=== PATIENT | male | born 1970 | race Two or more races ===

== ENCOUNTER 2022-07-06 07:51 | Emergency (ER) | payer MEDICAID, OTHER ==
[~2022-07-06] VITALS: Ht 170.2 cm; Wt 80.0 kg
[2022-07-06 08:03] VITALS: BP 170/113
[2022-07-06] MEDS ORDERED: VANCOMYCIN 1GM/250ML 250 ML IV ONE (09:00)
[2022-07-06] MEDS ORDERED: PIPERACILLIN-TAZOB 3.375GM 100 ML IV SCH (09:00)
[2022-07-06] MEDS ORDERED: VANCOMYCIN PER PHARMACY 0 MG IV SCH (09:00)
[2022-07-06 09:40] LABS: Basophils # (auto) 0.1 10 ^3/uL (0-0.2); Eosinophils # (auto) 0.1 10 ^3/uL (0-0.8); Eosinophils % (auto) 1.5 % (0.0-7.0); Hematocrit 37.6 % (41.0-53.0); Hemoglobin 12.8 g/dL (13.5-17.5); Mean Corpuscular Hemoglobin 30.9 pg (28.0-32.0); Mean Corpuscular Hgb Conc. 34.2 g/dL (32.0-36.0); Mean Corpuscular Volume 90.4 fL (80.0-100.0); Monocytes # (auto) 0.4 10 ^3/uL (0-1.3); Monocytes % (auto) 6.2 % (0.0-12.0); Neutrophils # (auto) 4.8 10 ^3/uL (1.6-8.6); Neutrophils % (auto) 76.3 % (37.0-80.0); Nucleated Red Blood Cells % 0.1 %; Red Blood Cells 4.15 10^6/uL (4.5-5.90); Red Cell Distribution Width 14.8 % (11.8-14.3); White Blood Cell 6.4 10^3/uL (4.4-10.8)
[2022-07-06 10:28] LABS: Potassium 4.7 mmol/L (3.5-5.1)
[2022-07-06 10:32] LABS: BUN/Creatinine Ratio 21.5; CRP High Sensitivity 0.18 mg/dL (< 0.3); Calcium 9.4 mg/dL (8.5-10.1)
[2022-07-06 10:35] LABS: Bilirubin, Total 0.3 mg/dL (0.2-1.0); Total Protein 6.7 g/dL (6.4-8.2)
[2022-07-06] MEDS ORDERED: HYDROcodone-ACET 5/325MG TAB PO ONE (12:30)
[2022-07-06] MEDS ORDERED: CLIN300C8 PO (12:36)
[2022-07-06] MEDS ORDERED: CEPH-510 PO (12:36)
== END 2022-07-06 13:56 | disposition left against medical advice (07) ==
LOC: ER 07:51
DX: S63.612A Unspecified sprain of right middle finger, initial encounter (principal); E11.9 Type 2 diabetes mellitus without complications; I10 Essential (primary) hypertension; Z88.0 Allergy status to penicillin; W57.XXXA Bitten or stung by nonvenomous insect and other nonvenomous arthropods, initial encounter; Y93.89 Activity, other specified; Y92.89 Other specified places as the place of occurrence of the external cause; Y99.8 Other external cause status
CPT/HCPCS: 36415; 73130; 80053; 82962; 83605; 85025; 85652; 86141; 87040